=== PATIENT | female | born 1945 | race Caucasian/White ===

== ENCOUNTER → 2016-06-07 | Outpatient (CLI) | payer MEDICARE, OTHER ==
[~2016-06-07] MED LIST: CETI10 PO; CITA20TA4 PO; LIPI40TA PO; VENTAER INH; ZITH250T PO; [UNRECOGNIZED DRUG - OTHER] INH
[2016-06-07 13:00] LABS: HEMATOCRIT 40.8 % (35.0-46.0); MEAN CELL VOLUME 95.7 FL (80.0-100.0); MEAN CORPUSCULAR HEMOGLOBIN 31.7 PG (27.0-34.0); MEAN CORPUSCULAR HGB CONC 33.1 % (32.0-36.0); PLATELET COUNT 226 TH/MM3 (150-450); RED BLOOD COUNT 4.27 MIL/MM3 (4.00-5.30); RED CELL DISTRIBUTION WIDTH 14.5 % (11.6-17.2); REVIEW FLAG FINAL; WHITE BLOOD COUNT 6.3 TH/MM3 (4.0-11.0)
[2016-06-07 13:23] LABS: MICRO ALBUMIN RANDOM URINE RAW 13.5 MG/L (0.0-30.0)
[2016-06-07 13:35] LABS: ALKALINE PHOSPHATASE 74 U/L (45-117); ALT (GPT) 27 U/L (10-53); ANION GAP 7 MEQ/L (5-15); AST (GOT) 17 U/L (15-37); BICARBONATE 29.3 MEQ/L (21.0-32.0); BLOOD UREA NITROGEN 10 MG/DL (7-18); CHLORIDE 109 MEQ/L (98-107); GLOMERULAR FILTRATION RATE 59 ML/MIN (>89); GLUCOSE,FASTING 103 MG/DL (74-99); HDL CHOLESTEROL 54.7 MG/DL (40.0-60.0); LDL CHOLESTEROL 145 MG/DL (0-99); POTASSIUM 4.8 MEQ/L (3.5-5.1); SODIUM (NA) 145 MEQ/L (136-145); THYROXINE (T4) 8.4 MCG/DL (4.8-13.9); TOTAL BILIRUBIN ADULT 1.4 MG/DL (0.2-1.0)
== END ==
LOC: PLAB 11:13
PROVIDERS: ATTEND Internal Medicine
DX: E78.5 Hyperlipidemia, unspecified (principal); E11.65 Type 2 diabetes mellitus with hyperglycemia; I10 Essential (primary) hypertension
CPT/HCPCS: 36415; 80053; 80061; 82043; 84436; 84443; 85027

== ENCOUNTER 2017-04-23 08:10 | Observation (INO) | payer MEDICARE, OTHER ==
[~2017-04-23] VITALS: Ht 157.5 cm; Wt 69.8 kg
[~2017-04-23 08:10] MED LIST changes: +ACLI1AER2 INH; +BUPR150T3 PO; +CETI-1 PO; -CETI10 PO; +IPRA0.06 EACH NARE; +LIDOCAINE 1%/EPINEPHrine 1:100,000 SOLN 30 ML VIAL ONE; +OXYMETAZOLINE HCL 0.05% 15 ML NASAL SPRAY ONE; -[UNRECOGNIZED DRUG - OTHER] INH
[2017-04-23] MEDS ORDERED: AMPICILLIN/SULBAC 3 GM/NS 100 ML IV PRN ×2 (08:30)
[2017-04-23] MEDS ORDERED: PANT20 PO (09:46)
[2017-04-23] MEDS ORDERED: HUMIBIDDM PO (09:46)
[2017-04-23] MEDS ORDERED: RESP: ALBUTEROL CONC 2.5 MG/0.5 ML NEB ONE (10:22)
[2017-04-23] MEDS ORDERED: LACTATED RINGER'S 1000 ML INJ 1,000 ML ONE (10:22)
[2017-04-23] MEDS ORDERED: FAMOTIDINE 20 MG/2 ML VIAL ONE (10:22)
[2017-04-23] MEDS ORDERED: MIDAZOLAM HCL 2 MG/2 ML VIAL ONE (10:22)
[2017-04-23] MEDS ORDERED: SODIUM CHLORID 0.9% 500 ML IV PRN (11:00)
[2017-04-23] MEDS ORDERED: POVIDONE IODINE 5% (ANTISEPSIS KIT) 4 APPLICATIONS EACH NARE PRN (11:00)
[2017-04-23] MEDS ORDERED: CHLORHEXIDINE GLUCONATE 2 % 1 PACK (2 CLOTHS) TOPICAL PRN (11:00)
[2017-04-23] MEDS ORDERED: LACTATED RINGER'S 1000 ML IV PRN (11:00)
[2017-04-23] MEDS ORDERED: METOPROLOL TARTRATE 25 MG TAB PO PRN (11:00)
[2017-04-23] MEDS ORDERED: MUPIROCIN 2% OINT 22 GM TUBE ONE (13:39)
[2017-04-23] MEDS ORDERED: LABETALOL HCL 100 MG/20 ML VIAL ONE (14:11)
[2017-04-23] MEDS ORDERED: MORPHINE SULFATE 4 MG/ML INJ ONE (14:24)
[2017-04-23] MEDS ORDERED: ONDANSETRON HCL 4 MG/2 ML VIAL IV PRN (14:45)
[2017-04-23] MEDS: LACTATED RINGER'S 1000 ML INJ 1,000 ML IV SCH (14:45)
[2017-04-23] MEDS ORDERED: ACETAMINOPHEN/HYDROcodone 325 MG/5 MG TAB PO PRN (14:45)
[2017-04-23] MEDS ORDERED: DO NOT ADM ANY ANTICOAGULANT DRUGS PRN (14:45)
[2017-04-23] MEDS ORDERED: HYDROmorphone HCL PF 1 MG/ML VIAL ONE ×2 (14:54→15:20)
[2017-04-23] MEDS ORDERED: ALBUTEROL SULFATE 90 MCG/ACT HFA 8 GM INHALER INH PRN (16:00)
--- NOTE | 2017-04-23 16:02 | EKG ---
Date Performed: 04/23/2017 Time Performed: 10:00:53 PTAGE: 71 years EKG: Sinus rhythm LOW QRS VOLTAGE IN PRECORDIAL LEADS PATTERN CONSISTENT WITH PULMONARY DISEASE LEFT ANTERIOR FASCICUL AR BLOCK Since previous tracing, no significant change noted ABNORMAL ECG PREVIOUS TRACING : 10/25/2013 23.53 DOCTOR: Tanesha Pak Interpretating Date/Time 04/23/2017 16:01:22
[2017-04-23 16:13] VITALS: BP 135/65; PULSE 76; RESP 18; TEMP 97.1; O2SAT 95
[2017-04-23 16:23] VITALS: O2SAT 95
[2017-04-23] MEDS: AMPICILLIN/SULBAC 3 GM/NS 100 ML IV SCH ×2 (19:57)
[2017-04-23 20:00] VITALS: BP 186/93; PULSE 83; RESP 16; TEMP 98.2; O2SAT 98
[2017-04-23] MEDS ORDERED: ACLIDINIUM INH SCH (21:00)
[2017-04-23 21:35] VITALS: O2SAT 95
[2017-04-24] VITALS: BP 157/76; PULSE 87; RESP 16; TEMP 96.9; O2SAT 99
[2017-04-24] MEDS: LACTATED RINGER'S 1000 ML INJ 1,000 ML IV SCH (03:15)
[2017-04-24] MEDS: AMPICILLIN/SULBAC 3 GM/NS 100 ML IV SCH ×2 (04:35)
[2017-04-24 08:00] VITALS: BP 157/80; PULSE 89; RESP 18; TEMP 97.9; O2SAT 100
[2017-04-24] MEDS ORDERED: buPROPion HCL 150 MG SUSTAINED RELEASE TAB PO SCH (09:00)
[2017-04-24] MEDS ORDERED: PANTOPRAZOLE SOD 20 MG DELAYED RELEASE TAB PO SCH (09:00)
[2017-04-24] MEDS ORDERED: ATORVASTATIN 40 MG TAB PO SCH (09:00)
[2017-04-24] MEDS ORDERED: LIDOCAINE HCL 1% PF 5 ML AMPULE OTHER ONE (12:00)
[2017-04-24] MEDS ORDERED: PHENYLEPH/NS 1000 MCG/10 ML SYR IV ONE (12:00)
[2017-04-24] MEDS ORDERED: DEXAMETHASONE SOD PHOS 4 MG/ML VIAL IV ONE (12:00)
[2017-04-24] MEDS ORDERED: PROPOFOL 200 MG/20 ML AMP IV ONE (12:00)
[2017-04-24] MEDS ORDERED: SUCCINYLCHOLINE CHLORIDE 100 MG/5 ML SYRINGE IV PUSH ONE (12:00)
[2017-04-24] MEDS ORDERED: ONDANSETRON HCL 4 MG/2 ML VIAL IV PUSH ONE (12:00)
--- NOTE | 2017-05-12 12:19 | MP ---
cc: MACIEL ALLEN M.D. DATE OF SURGERY: April 23, [address] Maciel Allen PREOPERATIVE DIAGNOSIS 1. Nasal airway obstruction. 2. Nasal septal deviation. 3. Hypertrophy of inferior turbinates. 4. Bilateral anterior nasal stenosis. POSTOPERATIVE DIAGNOSIS: 1. Nasal airway obstruction. 2. Nasal septal deviation. 3. Hypertrophy of inferior turbinates. 4. Bilateral anterior nasal stenosis. OPERATION PERFORMED 1. Bilateral repair anterior nasal stenosis. 2. Open repair, nasal septal fracture. 3. Bilateral submucosal resection of inferior turbinates. INDICATIONS: Documented in the history and physical. DESCRIPTION OF OPERATION The patient was taken to OR #2 and placed in the supine position. Following induction of general anesthesia and intubation, the nose was packed bilaterally with cotton pledgets saturated in 0.05% Oxymetazoline and was injected into the columella of the bilateral anterior nasal vestibule, the septal mucosa and inferior turbinates with a total of 12 mL of 1% Xylocaine with epinephrine 1:100,000. She was then prepped and draped for surgery. The packing was removed and a W-plasty incision was made on the inferior surface of the columella. This was carried down sharply to the inferior surfaces of the medial crura of lower lateral cartilages. Sharp dissection then continued anteriorly and superiorly extending the incision within the nasal vestibule and elevating the skin from the underlying lower lateral cartilages. Sharp dissection then continued superiorly and laterally until the skin was elevated from the upper lateral cartilages as far as the junction of the bony and cartilaginous septum. Sharp dissection then continued between the medial crura of lower lateral cartilages until the anterior end of the quadrangular cartilage was encountered. This was displaced into the left nasal vestibule along the line of fracture which was displaced into the right nasal vestibule. The line of fracture was approximately 1 cm posterior to the anterior nasal spine. The vestibular skin and septal mucosa were then elevated from the quadrangular cartilage using sharp dissection and a Rodrick elevator. This continued posteriorly as far as the junction of the bony and cartilaginous septum. Following this a cumulative area of 2 x 2.5 cm of the quadrangular cartilage was removed preserving 1.5 cm dorsal and caudal cartilaginous struts. The caudal cartilaginous strut was fully mobilized from the surrounding soft tissue and was then returned to the midline and sewn in place to the anterior nasal spine using a single suture of 5-0 clear nylon. When this was done the mucosa was elevated from the bony septum and the bony septum was removed with Mireles Dotson forceps and Grant septal forceps. The maxillary crest was removed using a 6-mm Lucy chisel and preserving the anterior nasal spine. When this was completed the inferior turbinates were addressed. There were fractured out medially and stab incisions made along their inferior surfaces. Through these incisions the submucosal soft tissue was reduced using a curette and preserving the conchal bone. The incision was then cauterized using a suction Bovie at 45 neal. The remnants of the inferior turbinates were then relateralized to the lateral nasal wall. Reconstruction of the columella was begun incorporating a 2 x 12 millimeter segment of the quadrangular cartilage. This was placed between the medial crura and held in place using interrupted sutures of the 5-0 clear nylon. Additional sutures of the nylon were placed into the domes of the lower lateral cartilages and a horizontal mattress suture was placed between the lateral crura of lower lateral cartilages to elevate and further define the nasal tip. The skin was then redraped over the nasal tip and the incisions were closed with interrupted sutures of 5-0 fast-absorbing plain gut. The nose was then packed bilaterally with 5.5 cm rapid rhino inflatable packs, each inflated with 5 mL of air and the procedure was terminated. The patient was reversed from anesthesia and taken to recovery in good condition. There were no complications. Blood loss was 80 mL. MD CONNOR Brenner/ESME /11:11 AM /11:49 AM
== END 2017-04-24 09:39 | disposition home or self-care (01) ==
LOC: PHSDC 08:10 → PH3A 15:59
PROVIDERS: ADMIT Otolaryngology; ATTEND Otolaryngology
DX: J34.2 Deviated nasal septum (principal); J34.3 Hypertrophy of nasal turbinates; J34.89 Other specified disorders of nose and nasal sinuses; J32.8 Other chronic sinusitis; J33.0 Polyp of nasal cavity; G47.33 Obstructive sleep apnea (adult) (pediatric); J44.9 Chronic obstructive pulmonary disease, unspecified; E78.00 Pure hypercholesterolemia, unspecified; R94.31 Abnormal electrocardiogram [ECG] [EKG]; Z87.891 Personal history of nicotine dependence
CPT/HCPCS: 00160; 21336; 30140; 30465; 88304; 93005; 94664; 94762; 96365; G0378; J0295; J0330; J1100; J1170; J2250; J2270; J2370; J2405; J3010; J7120; J7611; 88305

== ENCOUNTER 2017-05-05 23:44 | Inpatient (IN) | payer MEDICARE, OTHER ==
[~2017-05-05] VITALS: Ht 157.5 cm; Wt 78.5 kg
[~2017-05-05 23:44] MED LIST changes: -CITA20TA4 PO; +HUMIBIDDM PO; -IPRA0.06 EACH NARE; -LIDOCAINE 1%/EPINEPHrine 1:100,000 SOLN 30 ML VIAL ONE; -OXYMETAZOLINE HCL 0.05% 15 ML NASAL SPRAY ONE; +PANT20 PO; -ZITH250T PO
[2017-05-05 23:46] VITALS: BP 156/67; PULSE 90; RESP 16; O2SAT 94
[2017-05-06] VITALS (9 sets, daily range): BP systolic 102–173; BP diastolic 48–72; PULSE 82–92; RESP 17–19; TEMP 96.1–97.7; O2SAT 94–98
[2017-05-06 00:24] LABS: AUTOMATED NEUTROPHIL # 8.8 TH/MM3 (1.8-7.7); BASOPHIL # 0.1 TH/MM3 (0-0.2); BASOPHIL % 0.6 % (0.0-2.0); EOSINOPHIL # 0.2 TH/MM3 (0-0.4); EOSINOPHIL % 1.4 % (0.0-4.0); HEMATOCRIT 34.4 % (35.0-46.0); HEMOGLOBIN 11.7 GM/DL (11.6-15.3); LYMPH % 16.6 % (9.0-44.0); LYMPHOCYTE # 1.9 TH/MM3 (1.0-4.8); MEAN CELL VOLUME 95.8 FL (80.0-100.0); MEAN CORPUSCULAR HEMOGLOBIN 32.5 PG (27.0-34.0); MEAN CORPUSCULAR HGB CONC 33.9 % (32.0-36.0); MEAN PLATELET VOLUME 7.4 FL (7.0-11.0); MONO % 5.7 % (0.0-8.0); MONOCYTE # 0.7 TH/MM3 (0-0.9); NEUT % 75.7 % (16.0-70.0); PLATELET COUNT 271 TH/MM3 (150-450); RED BLOOD COUNT 3.59 MIL/MM3 (4.00-5.30); RED CELL DISTRIBUTION WIDTH 14.6 % (11.6-17.2); WHITE BLOOD COUNT 11.7 TH/MM3 (4.0-11.0)
[2017-05-06 00:30] LABS: PROTHROMBIN TIME - PATIENT 9.8 SEC (9.8-11.6)
--- NOTE | 2017-05-06 00:31 | PD ---
HPI Chief Complaint: Fall Time Seen by Provider: 23:52 Travel History International Travel<30 days: No Contact w/Intl Traveler<30days: No Traveled to known affect area: No History of Present Illness HPI The patient is a 71 year old female who presents to the [facility] emergency department with a history of tripping when going over a baby gate prior to arrival. The patient reports that she heard a snap and felt severe pain in the right leg below her knee. The patient was noted to have deformity in the right tib-fib area without any evidence of open wound. The patient was placed in a box splint by ambulance services prior to arrival. The patient denies hitting her head or losing consciousness. She denies having any neck pain, paresthesias, or weakness of her extremities. She denies being on any blood thinners. She denies having any chest pain or pressure. She does report having some shortness of breath occasionally, however she attributes this to her COPD. She reports that she quit smoking 4 years ago. Otherwise on review of systems, the patient denies having any recent fevers, worsening cough or congestion, neck pain, abdominal pain, vomiting, diarrhea, urinary symptoms, or other neurologic symptoms. [facility] Past Medical History Narrative Medical The patient's past medical history is significant for COPD, hyperlipidemia, depression, gastroesophageal reflux disease. Arthritis: Yes Blood Disorders: No Depression: Yes Cancer: Yes (BCC REMOVED FROM NOSE) Cardiovascular Problems: Yes (ELEVATED BLOOD CHOLESTEROL) High Cholesterol: Yes COPD: Yes Diminished Hearing: No Endocrine: No Gastrointestinal Disorders: Yes (GERD , INFLAMMATION OF STOMACH PER COLONOSCOPY IN AUGUST 2008) GERD: Yes Glaucoma: No Genitourinary: No Hepatitis: No Immune Disorder: No Implanted Vascular Access Dvce: Yes Musculoskeletal: Yes (RIGHT SHOULDER PAIN RELATED TO FALL) Neurologic: Yes (HERNIATED DISCS) Psychiatric: Yes Reproductive: No Respiratory: Yes (SLEEP APNEA (USES C-PAP), COPD) Sleep Apnea: Yes Influenza Vaccination: Yes Dilation and Curettage (D&C): Yes (THREE TIMES) Past Surgical History Narrative Surgical The patient's past surgical history is significant for bilateral hip replacement , right wrist ORIF, on April 23 of this year she had nasal surgery, history of bilateral cataract surgery, D&C, bilateral tubal ligation. Abdominal Surgery: No AICD: No Body Medical Devices: WIRE RIGHT WRIST Cardiac Surgery: No Section: Yes Ear Surgery: No Endocrine Surgery: No Eye Surgery: Yes (bilateral cataract surgeries) Genitourinary Surgery: No Gynecologic Surgery: Yes (84' ; D&C X 3; TUBAL LIGATION) Joint Replacement: Yes (BILAT HIPS) Oral Surgery: No Pacemaker: No Thoracic Surgery: No Other Surgery: Yes Social History Alcohol Use: Yes ("OCCASIONALLY") Tobacco Use: No (QUIT 05/21) Substance Use: No Allergies-Medications (Allergen,Severity, Reaction): Coded Allergies: Tetracyclines (Verified Allergy, Severe, UNKNOWN - CHILD, 04/23/17) Reported Meds & Prescriptions Reported Meds & Active Scripts Active Reported Protonix (Pantoprazole Sodium) 20 Mg Tab 20 Mg PO DAILY Tudorza Pressair Inh (Aclidinium [place] Inh) 400 Mcg/Act Aerp 1 Puff INH BID Bupropion HCl ER 24 HR (Bupropion HCl) 150 Mg Tab 150 Mg PO DAILY Zyrtec (Cetirizine HCl) 10 Mg Tablet PO DAILY Lipitor (Atorvastatin Calcium) 40 Mg Tab 40 Mg PO DAILY Ventolin Hfa 18 GM Inh (Albuterol Sulfate) 90 Mcg/Act Aer 2 Puff INH Q6H PRN Review of Systems Except as stated in HPI: all other systems reviewed are Neg General / Constitutional: No: Fever Eyes: No: Visual changes HENT: No: Headaches Cardiovascular: No: Chest Pain or Discomfort Respiratory: No: Shortness of Breath Gastrointestinal: No: Abdominal Pain Genitourinary: No: Dysuria Musculoskeletal: Positive: Myalgias, Arthralgias, Limited ROM, Edema, Pain Skin: No Rash Neurologic: No: Weakness Psychiatric: No: Depression Endocrine: No: Polydipsia Hematologic/Lymphatic: No: Easy Bruising Physical Exam Narrative General: The patient is a well-developed well-nourished female in no acute distress. Head and Neck exam: Head is normocephalic atraumatic. Eyes: EOMI, pupils are equal round and reactive to light. Nose: Midline septum with pink mucous membranes Mouth: Dentition unremarkable. Moist mucus membranes. Posterior oropharynx is not erythematous. No tonsillar hypertrophy. Uvula midline. Airway patent. Neck: No palpable lymphadenopathy. No nuchal rigidity. No thyromegaly. No spinous process tenderness to palpation. No step-off or crepitus. No erythema or ecchymosis Cardiovascular: Regular rate and rhythm without murmurs, gallops, or rubs. Lungs: Clear to auscultation bilaterally. No wheezes, rhonchi, or rales. Abdomen: Soft, without tenderness to palpation in all 4 quadrants of the abdomen. No guarding, rebound, or rigidity. Negative Clarendon sign. Extremities: No clubbing or cyanosis. The patient has edema noted to the mid shaft of the tibia. The patient has ecchymosis developing just distal to the knee. The patient has no knee tenderness on palpation. No knee effusion noted. No ballotable patella. The patient has tenderness on palpation overlying the tibia and fibula. There is no crepitus palpated. The patient has less than 3 second capillary refill of her digits. 2+ pulses in all 4 extremities. The patient has intact sensation of her digits. Back: No spinous process tenderness to palpation. No costovertebral angle tenderness to palpation. Neurologic Exam: Grossly nonfocal. Skin Exam: The patient has an abrasion noted to the right lateral forearm. Intact skin that is warm and dry. Data Data Last Documented VS Vital Signs Date Time Temp Pulse Resp B/P (MAP) Pulse Ox O2 Delivery O2 Flow Rate FiO2 05/06/17 01:28 82 18 135/61 (85) 97 Nasal Cannula 2.00 Orders Orders Electrocardiogram (05/06/17 00:03) Complete Blood Count With Diff (05/06/17 00:03) Comprehensive Metabolic Panel (05/06/17 00:03) Creatine Kinase (Cpk) (05/06/17 00:03) Ckmb (Isoenzyme) Profile (05/06/17:03) Troponin I (05/06/17:03) Prothrombin Time / Inr (Pt) (05/06/17 00:03) Act Partial Throm Time (Ptt) (05/06/17 00:03) Potassium, Serum (K) (05/06/17 00:03) Chest, Single Ap (05/06/17 00:03) Pelvis, Ap Only (Routine) (05/06/17 00:03) Iv Access Insert/Monitor (05/06/17 00:03) Ecg Monitoring (05/06/17 00:03) Oximetry (05/06/17 00:03) Knee, Complete (4vws) (05/06/17 00:03) Tibia/Fibula (Ap/Lat) (05/06/17 00:03) CKMB (05/05/17 23:50) CKMB% (05/05/17 23:50) Splint Or Brace Apply/Monitor (05/06/17 02:16) Admit Order (Ed Use Only) (05/06/17 02:21) Consult Orthopedic (05/06/17 ) Labs Laboratory Tests Test 05/05/17 23:50 White Blood Count 11.7 TH/MM3 Red Blood Count 3.59 MIL/MM3 Hemoglobin 11.7 GM/DL Hematocrit 34.4 % Mean Corpuscular Volume 95.8 FL Mean Corpuscular Hemoglobin 32.5 PG Mean Corpuscular Hemoglobin Concent 33.9 % Red Cell Distribution Width 14.6 % Platelet Count 271 TH/MM3 Mean Platelet Volume 7.4 FL Neutrophils (%) (Auto) 75.7 % Lymphocytes (%) (Auto) 16.6 % Monocytes (%) (Auto) 5.7 % Eosinophils (%) (Auto) 1.4 % Basophils (%) (Auto) 0.6 % Neutrophils # (Auto) 8.8 TH/MM3 Lymphocytes # (Auto) 1.9 TH/MM3 Monocytes # (Auto) 0.7 TH/MM3 Eosinophils # (Auto) 0.2 TH/MM3 Basophils # (Auto) 0.1 TH/MM3 CBC Comment DIFF FINAL Differential Comment Prothrombin Time 9.8 SEC Prothromb Time International Ratio 1.0 RATIO Activated Partial Thromboplast Time 22.0 SEC Blood Urea Nitrogen 16 MG/DL Creatinine 0.83 MG/DL Random Glucose 117 MG/DL Total Protein 7.2 GM/DL Albumin 3.7 GM/DL Calcium Level 8.2 MG/DL Alkaline Phosphatase 73 U/L Aspartate Amino Transf (AST/SGOT) 19 U/L Alanine Aminotransferase (ALT/SGPT) 19 U/L Total Bilirubin 0.6 MG/DL Sodium Level 145 MEQ/L Potassium Level 3.8 MEQ/L Chloride Level 111 MEQ/L Carbon Dioxide Level 27.7 MEQ/L Anion Gap 6 MEQ/L Estimat Glomerular Filtration Rate 68 ML/MIN Total Creatine Kinase 111 U/L Creatine Kinase MB 1.1 NG/ML Troponin I LESS THAN 0.02 NG/ML MDM Medical Decision Making Medical Screen Exam Complete: Yes Emergency Medical Condition: Yes Medical Record Reviewed: Yes Interpretation(s) Last Impressions Tibia/Fibula X-Ray 05/06/172 Signed Impressions: Service Date/Time: Saturday, May 06, 2017 00:29 - CONCLUSION: 1. Minimally displaced spiral fracture lateral malleolus. Lyndon Aparicio MD Pelvis X-Ray 05/06/172 Signed Impressions: Service Date/Time: Saturday, May 06, 2017 00:25 - CONCLUSION: 1. No acute findings. Previous bilateral hip replacement. Lyndon Aparicio MD Knee X-Ray 05/06/172 Signed Impressions: Service Date/Time: Saturday, May 06, 2017 00:28 - CONCLUSION: 1. Comminuted fractures of the proximal tibia and fibula with mild displacement and positive hemarthrosis. Lyndon Aparicio MD Chest X-Ray 05/06/172 Signed Impressions: Service Date/Time: Saturday, May 06, 2017 00:27 - CONCLUSION: 1. No active disease. Remote right proximal humeral fracture. Lyndon Aparicio MD Knee X-Ray 05/06/17 Signed Impressions: Service Date/Time: Saturday, May 06, 2017 08:45 - CONCLUSION: Fluoroscopic images during placement of plate and screws along the proximal tibia fixing fracture. Fibular fracture also seen. Negro Oliveira MD Ankle X-Ray 05/06/17 Signed Impressions: Service Date/Time: Saturday, May 06, 2017 08:45 - CONCLUSION: Fluoroscopic image of the ankle demonstrates ankle mortise intact. Distal fibular fracture noted. Negro Oliveira MD Differential Diagnosis Levine contusion, versus tib-fib fracture, versus dislocation Narrative Course During the course of the patients emergency department visit, the patients history, examination, and differential diagnosis were reviewed with the patient. The patient was placed on a regional otr company driver with oximetry and frequent blood pressure monitoring. The patient had IV access obtained and blood work sent for analysis. An EKG was done on arrival. The patient's EKG reveals a sinus rhythm, marked left axis deviation, QRS duration 92 ms, QTC [address] segment elevation. T waves are inverted in V1 The patient was initially provided an ice pack for pain. The patient had been given a total morphine 10 mg IV, prior to arrival by ambulance services. The patient was given normal saline at 100 mL per hour. The patients laboratory studies were reviewed and remarkable for a white count of 11.7, hemoglobin 11.7, platelets 271 with a neutrophil of 75.7. CMP is remarkable for chloride of 111, glucose 117, cardiac enzymes within normal limits, PT 9.8, PTT 22 Radiology studies were reviewed and remarkable for a tib-fib x-ray that reveals a minimally displaced spiral fracture of the lateral malleolus, pelvis x-ray reveals bilateral hip replacements, no other acute abnormality. Knee x-ray reveals a comminuted fracture of the proximal tibia and fibula with mild displacement and positive hemarthrosis. Chest x-ray shows no active disease, remote right proximal humeral fracture. The patient had an ice cuff applied to the right leg. The patient was placed in a long posterior splint. The patients results were discussed with the patient, including the plan of care. I explained that further testing and/ or monitoring is indicated based on the patients history, examination, and/ or laboratory findings. Therefore, I recommended admission for additional evaluation. The patient expressed understanding and was agreeable with this plan. The patient was admitted to the hospital in stable condition and sent to a bed under the care of the [facility]. Physician Communication Physician Communication The patient's case including history, pertinent physical examination findings, and laboratory studies were discussed with Dr. Zamora. It was agreed that the patient would be admitted to the [facility] service. Diagnosis Primary Impression: Fracture of right tibia and fibula Qualified Codes: S82.201A - Unspecified fracture of shaft of right tibia, initial encounter for closed fracture; S82.401A - Unspecified fracture of shaft of right fibula, initial encounter for closed fracture Additional Impression: Fracture of right ankle, lateral malleolus Qualified Codes: S82.61XA - Displaced fracture of lateral malleolus of right fibula, initial encounter for closed fracture Admitting Information Admitting Physician Requests: Admit Scripts Calcium Carbonate-Vitamin D (Calcium 600+D 200) 600-200 Mg-Unit Tab 1 TAB PO BID for Nutritional Supplement, #90 TAB 0 Refills Prov: Ezequiel Oden Jr. 05/07/17 Ergocalciferol (Ergocalciferol) 50,000 Unit Cap 08144 UNITS PO Q7D for Nutritional Supplement, #8 CAP Prov: Ezequiel Oden Jr. 05/07/17 Rivaroxaban (Xarelto) 10 Mg Tab 10 MG PO DAILY for Blood Clot Prevention, #14 TAB 0 Refills Prov: Ezequiel Oden Jr. 05/07/17 Hydrocodone-Acetaminophen (Hydrocodone-Acetaminophen) 7.5 Mg-325 Mg Tab 1 TAB PO Q4H Y for PAIN, #40 TAB 0 Refills Prov: Ezequiel Oden Jr. 05/07/17 Paige Hayes MD May 06, 2017 00:31
[2017-05-06 00:47] LABS: ALKALINE PHOSPHATASE 73 U/L (45-117); TOTAL BILIRUBIN ADULT 0.6 MG/DL (0.2-1.0); TOTAL PROTEIN 7.2 GM/DL (6.4-8.2); TROPONIN I LESS THAN 0.02 NG/ML (0.02-0.05)
[2017-05-06 00:48] LABS: ALBUMIN 3.7 GM/DL (3.4-5.0); ALT (GPT) 19 U/L (10-53); AST (GOT) 19 U/L (15-37); BICARBONATE 27.7 MEQ/L (21.0-32.0); BLOOD UREA NITROGEN 16 MG/DL (7-18); CALCIUM 8.2 MG/DL (8.5-10.1); CHLORIDE 111 MEQ/L (98-107); CREATININE 0.83 MG/DL (0.50-1.00); GLOMERULAR FILTRATION RATE 68 ML/MIN (>89); GLUCOSE,RANDOM 117 MG/DL (74-106); SODIUM (NA) 145 MEQ/L (136-145)
--- NOTE | 2017-05-06 01:05 | RADRPT ---
EXAM DATE/TIME: 05/06/2017 00:27 [facility] COMPARISON: No previous studies available for comparison. INDICATIONS : Right leg pain post fall onto right leg tonight. MEDICAL HISTORY : Hypercholesterolemia. Chronic obstructive pulmonary disease. Gastroesophageal reflux disease. SURGICAL HISTORY : Tubal ligation. section. Right Wrist, Bilateral Hip Replacement ENCOUNTER: Initial ACUITY: 1 day PAIN SCORE: 8/10 LOCATION: Bilateral chest FINDINGS: A single view of the chest demonstrates the lungs to be symmetrically aerated without evidence of mas s, infiltrate or effusion. The cardiomediastinal contours are unremarkable. Osseous structures are intact. CONCLUSION: 1. No active disease. Remote right proximal humeral fracture. Lyndon Aparicio MD on May 06, 2017 at 1:01 Board Certified Radiologist. This report was verified electronically.
--- NOTE | 2017-05-06 01:06 | RADRPT ---
EXAM DATE/TIME: 05/06/2017 00:25 [facility] COMPARISON: No previous studies available for comparison. INDICATIONS : Right leg pain post fall onto right leg tonight. MEDICAL HISTORY : Hypercholesterolemia. COPD, GERD SURGICAL HISTORY : Tubal ligation. section. Bilateral Hip Replacement ENCOUNTER: Initial ACUITY: 1 day PAIN SCORE: 8/10 LOCATION: Bilateral pelvis FINDINGS: A single frontal view of the pelvis demonstrates bilateral total hip replacement. Rectal constipation . No acute fracture or dislocation. CONCLUSION: 1. No acute findings. Previous bilateral hip replacement. Lyndon Aparicio MD on May 06, 2017 at 1:03 Board Certified Radiologist. This report was verified electronically.
--- NOTE | 2017-05-06 01:08 | RADRPT ---
EXAM DATE/TIME: 05/06/2017 00:28 [facility] COMPARISON: No previous studies available for comparison. INDICATIONS : Right leg pain post fall onto right leg tonight. MEDICAL HISTORY : Hypercholesterolemia. COPD, GERD SURGICAL HISTORY : Tubal ligation. section. Right wrist, Bilateral Hip Replacement ENCOUNTER: Initial ACUITY: 1 day PAIN SCORE: 8/10 LOCATION: Right Knee FINDINGS: There is a slightly comminuted fracture of the proximal tibia with extension into the tibial plateau especially laterally and mild depression. Also a mildly comminuted fracture proximal fibula. Bones os teopenic. Hemarthrosis right knee joint. Distal femur are intact. Patella intact. CONCLUSION: 1. Comminuted fractures of the proximal tibia and fibula with mild displacement and positive hemarthr osis. Lyndon Aparicio MD on May 06, 2017 at 1:04 Board Certified Radiologist. This report was verified electronically.
--- NOTE | 2017-05-06 01:09 | RADRPT ---
EXAM DATE/TIME: 05/06/2017 00:29 [facility] COMPARISON: No previous studies available for comparison. INDICATIONS : Right leg pain post fall onto right leg tonight. MEDICAL HISTORY : Hypercholesterolemia. COPD, GERD SURGICAL HISTORY : Tubal ligation. section. Right Wrist, Bilateral Hip Replacement ENCOUNTER: Initial ACUITY: 1 day PAIN SCORE: 8/10 LOCATION: Right Tib-Fib FINDINGS: There is a minimally displaced spiral fracture of the lateral malleolus. Mild overlying soft tissue s welling. Distal tibia intact. Ankle mortise appears intact. CONCLUSION: 1. Minimally displaced spiral fracture lateral malleolus. Lyndon Aparicio MD on May 06, 2017 at 1:06 Board Certified Radiologist. This report was verified electronically.
[2017-05-06] MEDS ORDERED: LACTULOSE SYRUP 20 GM/30 ML CUP PO PRN (02:30)
[2017-05-06] MEDS ORDERED: ONDANSETRON HCL 4 MG/2 ML VIAL IVP PRN (02:30)
[2017-05-06] MEDS ORDERED: ALBUTEROL SULFATE 90 MCG/ACT HFA 8 GM INHALER INH PRN (02:30)
[2017-05-06] MEDS ORDERED: ACETAMINOPHEN/HYDROcodone 325 MG/5 MG TAB PO PRN (02:30)
[2017-05-06] MEDS ORDERED: BISACODYL 10 MG SUPP RECTAL PRN (02:30)
[2017-05-06] MEDS ORDERED: SENNOSIDES 8.6 MG TAB PO PRN (02:30)
[2017-05-06] MEDS ORDERED: SODIUM CHLORIDE 0.9% FLUSH 10 ML FLUSH IV FLUSH PRN (02:30)
[2017-05-06] MEDS ORDERED: MAGNESIUM HYDROXIDE SUSP 30 ML CUP PO PRN (02:30)
[2017-05-06] MEDS ORDERED: ACETAMINOPHEN 325 MG TAB PO PRN (02:30)
[2017-05-06] MEDS: MORPHINE SULFATE 2 MG/ML INJ IV PUSH PRN ×2 (02:46→05:55)
[2017-05-06] MEDS: SODIUM CHLOR 0.9% 1000 ML INJ 1,000 ML IV SCH ×3 (02:54→23:23)
[2017-05-06] MEDS ORDERED: POVIDONE IODINE 5% (ANTISEPSIS KIT) 4 APPLICATIONS EACH NARE PRN (04:00)
[2017-05-06] MEDS ORDERED: LACTATED RINGER'S 1000 ML IV PRN (04:00)
[2017-05-06] MEDS ORDERED: CHLORHEXIDINE GLUCONATE 2 % 1 PACK (2 CLOTHS) TOPICAL PRN (04:00)
--- NOTE | 2017-05-06 04:39 | HHI.HP ---
[facility] Yeimy Evans MD Admission Diagnosis Right Tib fib fx, right lateral malleolus fx sp fall Diagnoses: (1) Fall Diagnosis: Principal (2) Right tibial fracture Diagnosis: Principal (3) Right malleolar fracture Diagnosis: Principal (4) COPD (chronic obstructive pulmonary disease) Diagnosis: Principal Travel History International Travel<30 Days: No Contact w/Intl Traveler <30 Da: No Traveled to Known Affected Are: No History of Present Illness This is a 71-year-old female with a PMH of HTN, Depression, anemia, COPD and GERD brought to the ER by EMS after a fall with complaints of right leg pain. Per patient, she was stepping over a baby gate to separate her dog from her, when she tripped and fell onto her right leg. Immediate complaints of pain. Pain constant, sharp, severe, 10/10, non-radiating, worse w/ movement. No LOC or head trauma. On arrival, BP 156/67, HR 90, O2 sat 94% on RA Afebrile. WBC 11.7. Chemistry essentially unremarkable. INR 1.0. CXR with no acute findings , remote right proximal humerus fracture. Knee X-ray with comminuted fractures of proximal tibia and fibula, hemarthrosis. Pelvis X-ray negative. Tibia/ Fibula X-ray minimally displaced spiral fracture lateral malleolus. Review of Systems Except as stated in HPI: all other systems reviewed are Neg ROS: 14 point review of systems otherwise negative. Past Family Social History Past Medical History PMH: HTN, Depression, anemia, COPD and GERD Past Surgical History PAST SURGICAL HISTORY: Bilateral Hip Replacement, Bilateral Cataract Surgery, Right Wrist ORIF, Tubal Ligation, Allergies: Coded Allergies: Tetracyclines (Verified Allergy, Severe, UNKNOWN - CHILD, 04/23/17) Family History PAST FAMILY HISTORY: Reviewed. No h/o DM or CAD Social History PAST SOCIAL HISTORY: Occasional alcohol. Negative for tobacco or drugs. Physical Exam Vital Signs Vital Signs Date Time Temp Pulse Resp B/P (MAP) Pulse Ox O2 Delivery O2 Flow Rate FiO2 05/06/17 02:56 86 19 140/63 (88) 97 Nasal Cannula 2.00 05/06/17 01:28 82 18 135/61 (85) 97 Nasal Cannula 2.00 05/06/17 00:47 83 18 172/71 (104) 97 Nasal Cannula 2.00 05/06/17 00:18 97 Room Air 05/05/17 23:46 90 16 156/67 (96) 94 Physical Exam PE: GENERAL: Pleasant elderly female in no acute distress. HEENT: PERRLA, EOMI. No scleral icterus or conjunctival pallor. No lid lag or facial droop. CARDIOVASCULAR: Regular rate and rhythm. No obvious murmurs to auscultation. No chest tenderness to palpation. RESPIRATORY: No obvious rhonchi or wheezing. Clear to auscultation. Breath sounds equal bilaterally. GASTROINTESTINAL: Abdomen soft, non-tender, nondistended. BS normal. MUSCULOSKELETAL: Extremities without clubbing, cyanosis, or edema. No obvious deformities. Decreased ROM of RLE due to injury. Pulses intact. NEUROLOGICAL: Awake, alert and oriented x4. No focal neurologic deficits. Moving both upper and lower extremities spontaneously. Laboratory Laboratory Tests Test 05/05/17 23:50 White Blood Count 11.7 Red Blood Count 3.59 Hemoglobin 11.7 Hematocrit 34.4 Mean Corpuscular Volume 95.8 Mean Corpuscular Hemoglobin 32.5 Mean Corpuscular Hemoglobin Concent 33.9 Red Cell Distribution Width 14.6 Platelet Count 271 Mean Platelet Volume 7.4 Neutrophils (%) (Auto) 75.7 Lymphocytes (%) (Auto) 16.6 Monocytes (%) (Auto) 5.7 Eosinophils (%) (Auto) 1.4 Basophils (%) (Auto) 0.6 Neutrophils # (Auto) 8.8 Lymphocytes # (Auto) 1.9 Monocytes # (Auto) 0.7 Eosinophils # (Auto) 0.2 Basophils # (Auto) 0.1 CBC Comment DIFF FINAL Differential Comment Prothrombin Time 9.8 Prothromb Time International Ratio 1.0 Activated Partial Thromboplast Time 22.0 Blood Urea Nitrogen 16 Creatinine 0.83 Random Glucose 117 Total Protein 7.2 Albumin 3.7 Calcium Level 8.2 Alkaline Phosphatase 73 Aspartate Amino Transf (AST/SGOT) 19 Alanine Aminotransferase (ALT/SGPT) 19 Total Bilirubin 0.6 Sodium Level 145 Potassium Level 3.8 Chloride Level 111 Carbon Dioxide Level 27.7 Anion Gap 6 Estimat Glomerular Filtration Rate 68 Total Creatine Kinase 111 Creatine Kinase MB 1.1 Troponin I LESS THAN 0.02 Result Diagram: 05/05/17234905/05/172349 Krisrinyesenia VTE Risk Assessment Jessica VTE Risk Assessment: Mod/High Risk (score >= 2) Krisrini Risk Assessment Model Point Value = 1 Point Value = 2 Point Value = 3 Point Value = 5 Age 41-60 Minor surgery BMI > 25 kg/m2 Swollen legs Varicose veins or History of unexplained or recurrent spontaneous Oral contraceptives or hormone replacement Sepsis (< 1 month) Serious lung disease, including pneumonia (< 1 month) Abnormal pulmonary function Acute myocardial infarction Congestive heart failure (< 1 month) History of inflammatory bowel disease Medical patient at bed rest Age 61-74 Arthroscopic surgery Major open surgery (> 45 min) Laparoscopic surgery (> 45 min) Malignancy Confined to bed (> 72 hours) Immobilizing plaster cast Central venous access Age >= 75 History of VTE Family history of VTE Factor V Leiden Prothrombin [id number] Lupus anticoagulant Anticardiolipin antibodies Elevated serum homocysteine Heparin-induced thrombocytopenia Other congenital or acquired thrombophilia Stroke (< 1 month) Elective arthroplasty Hip, pelvis, or leg fracture Acute spinal cord injury (< 1 month) Prophylaxis Regimen Total Risk Factor Score Risk Level Prophylaxis Regimen 0-1 Low Early ambulation 2 Moderate Order ONE of the following: *Sequential Compression Device (SCD) *Heparin 5000 units SQ BID 3-4 Higher Order ONE of the following medications: *Heparin 5000 units SQ TID *Enoxaparin/Lovenox 40 mg SQ daily (WT < 150 kg, CrCl > 30 mL/min) *Enoxaparin/Lovenox 30 mg SQ daily (WT < 150 kg, CrCl > 10-29 mL/min) *Enoxaparin/Lovenox 30 mg SQ BID (WT < 150 kg, CrCl > 30 mL/min) AND/OR *Sequential Compression Device (SCD) 5 or more Highest Order ONE of the following medications: *Heparin 5000 units SQ TID (Preferred with Epidurals) *Enoxaparin/Lovenox 40 mg SQ daily (WT < 150 kg, CrCl > 30 mL/min) *Enoxaparin/Lovenox 30 mg SQ daily (WT < 150 kg, CrCl > 10-29 mL/min) *Enoxaparin/Lovenox 30 mg SQ BID (WT < 150 kg, CrCl > 30 mL/min) AND *Sequential Compression Device (SCD) Assessment and Plan Problem List: (1) Fall ICD Code: W19.XXXA - Unspecified fall, initial encounter (2) Right malleolar fracture ICD Code: S82.891A - Other fracture of right lower leg, initial encounter for closed fracture (3) Right tibial fracture ICD Code: S82.201A - Unspecified fracture of shaft of right tibia, initial encounter for closed fracture (4) COPD (chronic obstructive pulmonary disease) ICD Code: J44.9 - COPD (chronic obstructive pulmonary disease) Status: Chronic Assessment and Plan A/P: 1. Fall: s/p mechanical trip and fall at home, no LOC or head trauma reported. No other injuries noted. 2. Right Proximal Tib-Fib Fx/Right Malleolus Fx: Secondary to above. The X- ray with comminuted fractures of proximal tibia and fibula with hemarthrosis. Tibia/Fibula X-ray minimally displaced spiral fracture lateral malleolus, images reviewed by me. Ortho consulted, plan is for surgical intervention. NPO , IVF, analgesics/antiemetics. Pre-op labs reviewed by me, essentially unremarkable. 3. COPD: Chronic Respiratory Failure. Resume home MDI/Neb. CXR w/ no acute findings, images reviewed by me. 4. DVT Prophylaxis: Anticoagulations postop 5. Social work for DC planning as needed. 6. Case discussed at length with ER physician, lab/records/imaging reviewed by me. Physician Certification 2 Midnight Certification Type: Admission for Inpatient Services Order for Inpatient Services The services are ordered in accordance with Medicare regulations or non- Medicare payer requirements, as applicable. In the case of services not specified as inpatient-only, they are appropriately provided as inpatient services in accordance with the 2-midnight benchmark. Estimated LOS (days): 2 days is the estimated time the patient will need to remain in the hospital, assuming treatment plan goals are met and no additional complications. Post-Hospital Plan: Not yet determined Esther Zamora MD May 06, 2017 04:39
[2017-05-06] MEDS ORDERED: ACETAMINOPHEN 1000 MG/100 ML 100 ML IV ONE (06:19)
--- NOTE | 2017-05-06 06:34 | PD.ORT.PN ---
Subjective Subjective Remarks Patient with a history of COPD. She was stepping over a baby gate and caught her foot and fell over. X-rays show a right tibia plateau and minimally displaced distal fibula fracture. Objective Vitals Vital Signs Date Time Temp Pulse Resp B/P (MAP) Pulse Ox O2 Delivery O2 Flow Rate FiO2 05/06/17 03:15 97.7 86 18 165/70 (101) 98 05/06/17 02:56 86 19 140/63 (88) 97 Nasal Cannula 2.00 05/06/17 01:28 82 18 135/61 (85) 97 Nasal Cannula 2.00 05/06/17 00:47 83 18 172/71 (104) 97 Nasal Cannula 2.00 05/06/17 00:18 97 Room Air 05/05/17 23:46 90 16 156/67 (96) 94 I/O 05/05/17 05/05/17 05/05/17 05/06/17 05/06/17 05/06/17 07:00 15:00 23:00 07:00 15:00 23:00 Intake Total 0 ml Balance 0 ml Intake Oral 0 ml # Voids 0 # Bowel Movements 0 Result Diagram: 05/05/17 2350 05/05/17 2350 Other Results Laboratory Tests Test 05/05/17 23:50 Prothromb Time International Ratio 1.0 RATIO Prothrombin Time 9.8 SEC (9.8-11.6) Imaging Last 24 hours Impressions Tibia/Fibula X-Ray 05/06/17 0003 Signed Impressions: Service Date/Time: Saturday, May 06, 2017 00:29 - CONCLUSION: 1. Minimally displaced spiral fracture lateral malleolus. Lyndon Aparicio MD Pelvis X-Ray 05/06/172 Signed Impressions: Service Date/Time: Saturday, May 06, 2017 00:25 - CONCLUSION: 1. No acute findings. Previous bilateral hip replacement. Lyndon Aparicio MD Knee X-Ray 05/06/172 Signed Impressions: Service Date/Time: Saturday, May 06, 2017 00:28 - CONCLUSION: 1. Comminuted fractures of the proximal tibia and fibula with mild displacement and positive hemarthrosis. Lyndon Aparicio MD Chest X-Ray 05/06/172 Signed Impressions: Service Date/Time: Saturday, May 06, 2017 00:27 - CONCLUSION: 1. No active disease. Remote right proximal humeral fracture. Lyndon Aparicio MD Objective Remarks Patient is comfortable on O2 nasal cannula Right lower extremity: No pain at hip. She has a knee immobilizer and long-leg splint in place. She has intact sensation distally in her toes. She is good capillary refills. Assessment & Plan Assessment and Plan Right tibia plateau and distal fibula fracture Nothing by mouth Surgery this morning for ORIF of right tibia plateau and stress exam of right ankle. If ankles is unstable ORIF of the distal fibula or syndesmosis may be necessary Sign consents Ezequiel Oden Jr. May 06, 2017 06:34
--- NOTE | 2017-05-06 08:14 | MB ---
cc: ABELARDO MONTGOMERY DATE OF CONSULTATION: 05/06/2017 REASON FOR CONSULTATION 1. Right proximal tibia fracture. 2. Right distal fibula fracture. CONSULTING PHYSICIAN Dr. Zamora. HISTORY OF PRESENT ILLNESS Ms. Walsh is a 71-year-old female who has a history of hypertension, depression, anemia, COPD and reflux. She had a fall. She states that she was stepping over a baby gate to feed her cat. She lost her balance and fell. She had immediate right knee and right ankle pain. Most of her pain is in her right knee. She describes mechanical trip and fall. She denies dizziness, syncope or loss of consciousness. Pain is worse with weightbearing or movement. She is currently awake and alert on the orthopedic floor. Pain is improved with rest. PAST MEDICAL HISTORY ILLNESSES 1. Hypertension. 2. Depression. 3. Anemia. 4. COPD. 5. Reflux. SURGERIES 1. Bilateral hip replacement. 2. Cataract surgery. 3. Right wrist open reduction, internal fixation. 4. Tubal ligation. 5. . ALLERGIES TETRACYCLINE. SOCIAL HISTORY The patient denies tobacco or drug use. She drinks alcohol occasionally. FAMILY HISTORY Noncontributory. REVIEW OF SYSTEMS The patient denies headache, visual changes, neck pain, chest pain, shortness of breath, abdominal pain, nausea, vomiting or recent weight loss, fevers, chills, numbness or tingling of extremities or bowel or bladder incontinence. She complains of right knee and right ankle pain. PHYSICAL EXAMINATION GENERAL: The patient is a pleasant 71-year-old female. She is awake and alert. She appears well-developed, well-nourished. She is in no acute distress. VITAL SIGNS: Temperature 97.7, pulse 86, respirations 18, blood pressure 165/70, O2 sat 98% on 2 liters nasal cannula. HEAD: The patient is normocephalic. Pupils are equal. NECK: Soft, nontender. Trachea is midline. ABDOMEN: Soft, nontender, nondistended. EXTREMITIES: Examination of bilateral upper extremities reveals no pain with shoulder, elbow or wrist motion. She has intact sensation in all fingers. She has good cap refill in all fingers. Skin is intact. Radial pulses are palpable bilaterally. Telecommunications Operator strength is +5 bilaterally. Examination of left leg reveals no pain with hip, knee or ankle motion. Skin is intact. Dorsalis pedis pulses palpable. Sensation is intact. Examination of right leg reveals no tenderness around her hip. She is diffusely tender around her knee and proximal tibia. Calf and thigh compartments are soft. She has tenderness over the distal fibula. Skin is intact. Dorsalis pedis pulses palpable. Sensation is intact in her right foot. IMAGING STUDIES X-rays of right knee were reviewed. X-rays reveal a mildly displaced right proximal tibial plateau fracture. Articular surface is relatively well-aligned. X-rays of right ankle were reviewed. X-rays reveal an oblique fracture to the distal fibula. The mortise appears to be intact with no widening of the medial clear space. LABORATORY DATA White blood cell count of 11.7, hemoglobin is 11.7, hematocrit is 34.4. INR is 1.0. The BUN is 16, creatinine is 0.83. IMPRESSION 1. Hypertension. 2. COPD. 3. Reflux. 4. Right tibial plateau fracture. 5. Right distal fibula fracture. PLAN Treatment options were discussed with the patient. At this point I would recommend surgical open reduction, internal fixation of right tibial plateau. I will further evaluate right ankle fracture under fluoroscopy. Likely it will be treated non operatively. The risks of surgery include bleeding, infection, injuries to arteries, nerves and blood vessels, nonunion, malunion, painful hardware, knee arthritis, knee stiffness, loss of motion as well as medical complications including blood clot, stroke, heart attack and . All questions were answered. I will plan on surgery today. X-rays and lab results were reviewed. I will plan on surgery today. A mid-level provider in my office, nurse practitioner or PA, may see this patient on a follow-up basis and continue to implement the objective of this plan including: Starting or adjusting medications, injections of muscle, tendon, bursa or joints, cast application, orthotic or brace application, physical therapy, further radiographic studies including x-ray, MRI, CT, ultrasounds or bone scan, vascular studies, neurologic studies, or other specialist consultations, and proceeding with surgical management as appropriate. MD JEAN-PIERRE Thao/JORGE /7:31 AM 7:54 AM
[2017-05-06] MEDS ORDERED: ceFAZolin 2 GM PREMIX 50 ML ONE (08:42)
[2017-05-06] MEDS ORDERED: VANCOMYCIN HCL 1000 MG VIAL ONE (08:43)
[2017-05-06] MEDS ORDERED: DEXAMETHASONE SOD PHOS 4 MG/ML VIAL ONE (08:43)
[2017-05-06] MEDS ORDERED: GENTAMICIN SULFATE 80 MG/2 ML VIAL IRRIGATION ONE (08:47)
[2017-05-06] MEDS: SODIUM CHLORIDE 0.9% FLUSH 10 ML FLUSH IV FLUSH SCH ×2 (09:00→21:49)
[2017-05-06] MEDS ORDERED: ACLIDINIUM BROMIDE INH SCH (09:00)
[2017-05-06] MEDS: LACTATED RINGER'S 1000 ML INJ 1,000 ML IV SCH ×2 (09:23→21:53)
[2017-05-06] MEDS ORDERED: DO NOT ADM ANY ANTICOAGULANT DRUGS PRN (09:30)
[2017-05-06] MEDS ORDERED: diphenhydrAMINE HCL 25 MG CAP PO PRN (09:30)
[2017-05-06] MEDS ORDERED: NALOXONE HCL 0.4 MG/ML AMP IV PUSH PRN (09:30)
[2017-05-06] MEDS ORDERED: Post-op Orders (for Pharmacy) XX ONE (09:30)
--- NOTE | 2017-05-06 09:32 | PD.OP ---
cc: Brice Bailey MD Operative Report Date of Surgery: May 06, 2017 Preoperative Diagnosis: Right tibia bicondylar plateau fracture, right distal fibula fracture Postoperative Diagnosis: Procedure: Open reduction internal fixation right bicondylar tibial plateau fracture, stress exam of ankle under fluoroscopy, compartment pressure monitor checks right calf Surgeon: Brice Bailey Electrifier Operator(s): JENNIFER Block PA-C The surgical procedure was assisted by my physician behavioral health assistant. My P.A. presence was necessary throughout this case for the manipulation and positioning of the surgical extremity. My P.A. was assisting me throughout the duration of this procedure. The skill set of a physician behavioral health assistant was medically necessary to complete this procedure. During the surgical case the technical photographer was working at the back table and the physician behavioral health assistant was directly assisting me. Operation and Findings: Plan of activity: Nonweightbearing right leg Implants used: Biomet Tesha was seen and evaluated preoperatively. Patient sustained an injury resulting a bicondylar right tibial plateau fracture and right distal fibula fracture. Informed consent was obtained preoperatively after detailed discussion of the risks and benefits of surgery. Risk of surgery including bleeding, infection, nonunion, painful hardware, stiffness, loss of motion, arthritis, need for knee replacement, as well as medical complications including blood clots, stroke, heart attack, and were discussed. I also discussed the possibility of using allograft bone graft . Preoperatively the operative site was marked. Patient was brought to the operating room and placed on the operating room table. Intravenous sedation and general endotracheal anesthesia were administered. IV antibiotics were given and a time out procedure was preformed. The operative leg was prepped with alcohol followed by Hibiclens and draped in the usual sterile fashion. Procedure began with a 4-inch curvilinear incision over the anterolateral knee. Subcutaneous tissue was treated with Bovie. Iliotibial band was split in line with fibers. A sub-meniscal arthrotomy was created and the lateral articular surface was visualized. There was mild depression of the lateral articular surface. A window was made in the metaphyseal region and bone tamps used to elevate the articular surface. Articular surface reduced into excellent alignment. K-wires were used for provisional fixation. At this point cancellous bone graft was packed under the articular surface using a bone tamp. The cortical fragments were now reduced. Fluoroscopy revealed excellent alignment of fracture. A Biomet proximal tibial plate was selected. The plate was provisionally held with K-wires. 3.5 cortical screws were used compress plate to bone distally, and a periarticular clamp was used to compress the medial and lateral tibial plateau fracture fragments together. Multiple locking screws were now placed proximally. Additional screws were placed in the shaft. K-wires were removed. Final fluoroscopy showed excellent alignment of fracture with well-placed hardware. The incision was thoroughly irrigated. Arthrotomy and iliotibial band closed with #1 Vicryl,. Subcutaneous tissues closed with 3-0 Vicryl and skin was closed with chip. At this point patient's calf was examined. Patient had several fracture blisters develop around the calf. She had moderate swelling of the calf at this time. Decision was made to check compartment pressure measurements. Using the [employer] pressure monitor device, the calf compartments were checked. The lateral compartment measured 24, anterior compartment measured 31, and posterior compartment measured 14. Patient's blood pressure was 120/62 with a mean arterial pressure of 81. At this point, she does not have compartment syndrome. We will continue monitoring patient clinically for signs of increased swelling. Next attention was turned to the right ankle. Right ankle was visualized under fluoroscopy. Patient has a minimally displaced fibular fracture. The ankle was gently stressed. There was no widening of syndesmosis or medial clear space. Fibular fracture will be just treated nonoperatively. Sterile dressings were applied. The patient was transferred to recovery in stable condition. Brice Bailey MD May 06, 2017 09:32
[2017-05-06] MEDS ORDERED: ERGOCALCIFEROL (VIT D2) 50,000 UNIT CAP PO SCH (10:00)
--- NOTE | 2017-05-06 10:02 | RADRPT ---
EXAM DATE/TIME: 05/06/2017 08:45 [facility] COMPARISON: No previous studies available for comparison. INDICATIONS : ORIF right tibial plateau fracture. MEDICAL HISTORY : Unobtainable. SURGICAL HISTORY : Unobtainable. ENCOUNTER: Subsequent ACUITY: 1 day PAIN SCORE: Non-responsive. LOCATION: Right knee CONCLUSION: Fluoroscopic images during placement of plate and screws along the proximal tibia fixing fracture. Fi bular fracture also seen. Negro Oliveira MD on May 06, 2017 at 9:59 Board Certified Radiologist. This report was verified electronically.
--- NOTE | 2017-05-06 10:03 | RADRPT ---
EXAM DATE/TIME: 05/06/2017 08:45 [facility] COMPARISON: TIBIA/FIBULA RIGHT (AP/LAT), May 06, 2017, 0:29. INDICATIONS : Evaluate for fracture of right ankle under fluoro. MEDICAL HISTORY : Unobtainable. SURGICAL HISTORY : Unobtainable. ENCOUNTER: Initial ACUITY: 1 day PAIN SCORE: Non-responsive. LOCATION: Right ankle. CONCLUSION: Fluoroscopic image of the ankle demonstrates ankle mortise intact. Distal fibular fracture noted. Negro Oliveira MD on May 06, 2017 at 9:59 Board Certified Radiologist. This report was verified electronically.
[2017-05-06] MEDS: ATORVASTATIN 40 MG TAB PO SCH (11:04)
[2017-05-06] MEDS: PANTOPRAZOLE SOD 20 MG DELAYED RELEASE TAB PO SCH (11:04)
[2017-05-06] MEDS: DOCUSATE SODIUM 50 MG/SENNA 8.6 MG TAB PO SCH ×2 (11:04→21:47)
[2017-05-06] MEDS: buPROPion HCL 150 MG SUSTAINED RELEASE TAB PO SCH (11:04)
[2017-05-06] MEDS: CALCIUM/VITAMIN D 250 MG/125 U TAB PO SCH ×2 (13:00→18:00)
[2017-05-06] MEDS: KETOROLAC TROMETHAMINE 30 MG/ML (IVP) VIAL IVP SCH ×2 (15:33→21:47)
[2017-05-06] MEDS: ACETAMINOPHEN/HYDROcodone 325 MG/7.5 MG TAB PO PRN ×2 (15:33→21:49)
--- NOTE | 2017-05-06 17:44 | EKG ---
Date Performed: 05/06/2017 Time Performed: 00:43:49 PTAGE: 71 years EKG: Sinus rhythm MARKED LEFT AXIS DEVIATION LOW QRS VOLTAGE IN PRECORDIAL LEADS Left anterior fasicular block. ABNORM AL ECG PREVIOUS TRACING : 04/23/2017 10.00.53 DOCTOR: Jerrod Chinchilla Interpretating Date/Time 05/06/2017 17:43:41
[2017-05-06] MEDS: VANCOMYCIN INJ 1,000 MG in SODIUM CHLOR 0.9% 250 ML INJ 250 ML IV SCH (21:47)
[2017-05-06] MEDS: ceFAZolin 2 GM PREMIX 50 ML IV SCH (23:26)
[2017-05-07] VITALS (8 sets, daily range): BP systolic 98–142; BP diastolic 50–64; PULSE 76–92; RESP 17–18; TEMP 96.6–98.3; O2SAT 94–99
[2017-05-07 05:48] LABS: AUTOMATED NEUTROPHIL # 9.4 TH/MM3 (1.8-7.7); BASOPHIL % 0.2 % (0.0-2.0); HEMATOCRIT 28.1 % (35.0-46.0); HEMOGLOBIN 9.5 GM/DL (11.6-15.3); LYMPH % 7.5 % (9.0-44.0); LYMPHOCYTE # 0.8 TH/MM3 (1.0-4.8); MEAN CELL VOLUME 96.4 FL (80.0-100.0); MEAN CORPUSCULAR HEMOGLOBIN 32.6 PG (27.0-34.0); MEAN CORPUSCULAR HGB CONC 33.8 % (32.0-36.0); MEAN PLATELET VOLUME 7.6 FL (7.0-11.0); MONO % 7.5 % (0.0-8.0); MONOCYTE # 0.8 TH/MM3 (0-0.9); NEUT % 84.8 % (16.0-70.0); PLATELET COUNT 242 TH/MM3 (150-450); RED BLOOD COUNT 2.92 MIL/MM3 (4.00-5.30); RED CELL DISTRIBUTION WIDTH 14.5 % (11.6-17.2); WHITE BLOOD COUNT 11.1 TH/MM3 (4.0-11.0)
[2017-05-07] MEDS: ACETAMINOPHEN/HYDROcodone 325 MG/7.5 MG TAB PO PRN ×4 (06:11→21:21)
[2017-05-07] MEDS: KETOROLAC TROMETHAMINE 30 MG/ML (IVP) VIAL IVP SCH (06:11)
[2017-05-07 06:16] LABS: ALKALINE PHOSPHATASE 66 U/L (45-117); ALT (GPT) 19 U/L (10-53); AST (GOT) 21 U/L (15-37); BICARBONATE 25.8 MEQ/L (21.0-32.0); BLOOD UREA NITROGEN 15 MG/DL (7-18); CHLORIDE 111 MEQ/L (98-107); CREATININE 0.69 MG/DL (0.50-1.00); GLOMERULAR FILTRATION RATE 84 ML/MIN (>89); GLUCOSE,RANDOM 119 MG/DL (74-106); SODIUM (NA) 144 MEQ/L (136-145); TOTAL BILIRUBIN ADULT 0.6 MG/DL (0.2-1.0); TOTAL PROTEIN 6.3 GM/DL (6.4-8.2)
--- NOTE | 2017-05-07 06:32 | PD.ORT.PN ---
Subjective Subjective Remarks Resting in bed comfortably. They have been icing her leg and elevating. Objective Vitals Vital Signs Date Time Temp Pulse Resp B/P (MAP) Pulse Ox O2 Delivery O2 Flow Rate FiO2 05/07/17 03:39 96.9 83 18 119/51 (73) 98 05/07/17 00:12 97.0 87 17 114/53 (73) 97 05/06/17 21:10 95 Nasal Cannula 3.00 05/06/17 19:48 97.5 92 17 102/48 (66) 96 05/06/17 16:45 18 05/06/17 16:45 18 05/06/17 16:00 96.7 90 18 134/67 (89) 96 05/06/17 11:40 96.1 83 18 173/72 (105) 94 05/06/17 10:30 97.7 84 20 160/70 (100) 95 Nasal Cannula 4 05/06/17 10:15 84 20 167/70 (102) 95 Nasal Cannula 4 05/06/17 10:00 83 20 156/67 (96) 97 Nasal Cannula 4 05/06/17 09:45 87 20 163/66 (98) 98 Nasal Cannula 4 05/06/17 09:29 97.7 96 20 126/57 (80) 95 Nasal Cannula 4 I/O 05/06/17 05/06/17 05/06/17 05/07/17 05/07/17 05/07/17 07:00 15:00 23:00 07:00 15:00 23:00 Intake Total 0 ml 1480 ml 460 ml Output Total 250 ml Balance 0 ml 1230 ml 460 ml Intake Oral 0 ml 480 ml 360 ml IV Total 100 ml Other 1000 ml Output Urine Total 150 ml Estimated Blood Loss 100 ml # Voids 0 2 # Bowel Movements 0 0 0 Result Diagram: 05/07/17 0510 05/07/17 0510 Imaging Last 24 hours Impressions Tibia/Fibula X-Ray 05/06/17 0003 Signed Impressions: Service Date/Time: Saturday, May 06, 2017 00:29 - CONCLUSION: 1. Minimally displaced spiral fracture lateral malleolus. Lyndon Aparicio MD Pelvis X-Ray 05/06/17 0003 Signed Impressions: Service Date/Time: Saturday, May 06, 2017 00:25 - CONCLUSION: 1. No acute findings. Previous bilateral hip replacement. Lyndon Aparicio MD Knee X-Ray 05/06/17 0003 Signed Impressions: Service Date/Time: Saturday, May 06, 2017 00:28 - CONCLUSION: 1. Comminuted fractures of the proximal tibia and fibula with mild displacement and positive hemarthrosis. Lyndon Aparicio MD Chest X-Ray 05/06/17 0003 Signed Impressions: Service Date/Time: Saturday, May 06, 2017 00:27 - CONCLUSION: 1. No active disease. Remote right proximal humeral fracture. Lyndon Aparicio MD Objective Remarks Patient is comfortable on O2 nasal cannula Right lower extremity: No pain at hip. She has 2 large ice bags over her lower knee and tibia. She has clean dressings. Swelling is continuing to improve. Distally she has intact sensation with active dorsiflexion plantar flexion foot and movement of toes. Assessment & Plan Assessment and Plan Right tibia plateau ORIF POD 1 Right distal fibula fracture treating nonoperatively Nonweightbearing right lower extremity Continue to ice and elevate lower leg Bedrest today As swelling improves with anticipate putting short leg splint on tomorrow morning and back and knee immobilizer. At that point she may begin working with physical therapy and getting up on a walker and transferring. Daily dressing changes Lovenox Incentive spirometry Plan for discharge to rehabilitation tomorrow or Follow-up Dr. Bailey or DIPESH in 2 weeks Ezequiel Oden Jr. May 07, 2017 06:32
[2017-05-07] MEDS ORDERED: XARE10TA PO (06:34)
[2017-05-07] MEDS ORDERED: CALCTAB19 PO (06:34)
[2017-05-07] MEDS ORDERED: HYDR-3580 PO (06:34)
[2017-05-07] MEDS ORDERED: VITA500012 PO (06:34)
[2017-05-07] MEDS ORDERED: WALKER/ADULT/FO1 MIS (06:35)
[2017-05-07] MEDS: SODIUM CHLOR 0.9% 1000 ML INJ 1,000 ML IV SCH ×2 (08:28→18:28)
[2017-05-07] MEDS: ceFAZolin 2 GM PREMIX 50 ML IV SCH ×2 (08:39→17:36)
[2017-05-07] MEDS: VANCOMYCIN INJ 1,000 MG in SODIUM CHLOR 0.9% 250 ML INJ 250 ML IV SCH (08:39)
[2017-05-07] MEDS: ENOXAPARIN SODIUM 30 MG/0.3 ML SYRINGE SQ SCH (08:40)
[2017-05-07] MEDS: DOCUSATE SODIUM 50 MG/SENNA 8.6 MG TAB PO SCH ×2 (08:41→21:20)
[2017-05-07] MEDS: CALCIUM/VITAMIN D 250 MG/125 U TAB PO SCH ×3 (08:41→17:34)
[2017-05-07] MEDS: CHOLECALCIFEROL (VIT D3) 1000 UNIT TAB PO SCH (08:41)
[2017-05-07] MEDS: buPROPion HCL 150 MG SUSTAINED RELEASE TAB PO SCH (08:41)
[2017-05-07] MEDS: PANTOPRAZOLE SOD 20 MG DELAYED RELEASE TAB PO SCH (08:41)
[2017-05-07] MEDS: ATORVASTATIN 40 MG TAB PO SCH (08:42)
[2017-05-07] MEDS: SODIUM CHLORIDE 0.9% FLUSH 10 ML FLUSH IV FLUSH SCH ×2 (08:42→21:21)
--- NOTE | 2017-05-07 08:42 | HHI.PR ---
Subjective Remarks no pain complains patient voidied already spntaenously states she was climbing over baby gate and fell Objective Vitals Vital Signs Date Time Temp Pulse Resp B/P (MAP) Pulse Ox O2 Delivery O2 Flow Rate FiO2 05/07/17 08:35 98 Nasal Cannula 2.50 05/07/17 08:00 96.6 76 18 111/53 (72) 99 05/07/17 03:39 96.9 83 18 119/51 (73) 98 05/07/17 00:12 97.0 87 17 114/53 (73) 97 05/06/17 21:10 95 Nasal Cannula 3.00 05/06/17 19:48 97.5 92 17 102/48 (66) 96 05/06/17 16:45 18 05/06/17 16:45 18 05/06/17 16:00 96.7 90 18 134/67 (89) 96 05/06/17 11:40 96.1 83 18 173/72 (105) 94 05/06/17 10:30 97.7 84 20 160/70 (100) 95 Nasal Cannula 4 05/06/17 10:15 84 20 167/70 (102) 95 Nasal Cannula 4 05/06/17 10:00 83 20 156/67 (96) 97 Nasal Cannula 4 05/06/17 09:45 87 20 163/66 (98) 98 Nasal Cannula 4 05/06/17 09:29 97.7 96 20 126/57 (80) 95 Nasal Cannula 4 I/O 05/06/17 05/06/17 05/06/17 05/07/17 05/07/17 05/07/17 07:00 15:00 23:00 07:00 15:00 23:00 Intake Total 0 ml 1480 ml 460 ml 360 ml Output Total 250 ml Balance 0 ml 1230 ml 460 ml 360 ml Intake Oral 0 ml 480 ml 360 ml 360 ml IV Total 100 ml Other 1000 ml Output Urine Total 150 ml Estimated Blood Loss 100 ml # Voids 0 2 2 # Bowel Movements 0 0 0 0 Result Diagram: 05/07/17 0510 05/07/17 0510 Imaging Last Impressions Tibia/Fibula X-Ray 05/06/17 0003 Signed Impressions: Service Date/Time: Saturday, May 06, 2017 00:29 - CONCLUSION: 1. Minimally displaced spiral fracture lateral malleolus. Lyndon Aparicio MD Pelvis X-Ray 05/06/17 0003 Signed Impressions: Service Date/Time: Saturday, May 06, 2017 00:25 - CONCLUSION: 1. No acute findings. Previous bilateral hip replacement. Lyndon Aparicio MD Knee X-Ray 05/06/17 0003 Signed Impressions: Service Date/Time: Saturday, May 06, 2017 00:28 - CONCLUSION: 1. Comminuted fractures of the proximal tibia and fibula with mild displacement and positive hemarthrosis. Lyndon Aparicio MD Chest X-Ray 05/06/17 0003 Signed Impressions: Service Date/Time: Saturday, May 06, 2017 00:27 - CONCLUSION: 1. No active disease. Remote right proximal humeral fracture. Lyndon Aparicio MD Ankle X-Ray 05/06/17 0000 Signed Impressions: Service Date/Time: Saturday, May 06, 2017 08:45 - CONCLUSION: Fluoroscopic image of the ankle demonstrates ankle mortise intact. Distal fibular fracture noted. Negro Oliveira MD Objective Remarks awake and alert, no distress lungs- clear regular rhythm abdomen soft, nontender extremities- right LE- immobilizer in place, ++ DP, PT, mild foot swelling Procedures 05/06 Open reduction internal fixation right bicondylar tibial plateau fracture, stress exam of ankle under fluoroscopy, compartment pressure monitor checks right calf A/P Problem List: (1) Fall ICD Code: W19.XXXA - Unspecified fall, initial encounter (2) Right malleolar fracture ICD Code: S82.891A - Other fracture of right lower leg, initial encounter for closed fracture (3) Right tibial fracture ICD Code: S82.201A - Unspecified fracture of shaft of right tibia, initial encounter for closed fracture (4) COPD (chronic obstructive pulmonary disease) ICD Code: J44.9 - COPD (chronic obstructive pulmonary disease) Status: Chronic Assessment and Plan 71 years old baseline very independent s/p mechanical trip and fall at home, no LOC or head trauma reported. No other injuries noted. S/P ORIF Right Proximal Tib-Fib Fx/Right Malleolus Fx 05/06: Secondary to above. Ortho ff. PTT daily prn pain meds COPD: - in remission. not 02 dependent History of AHMET Resume home MDI/Neb. CXR w/ no acute findings, images reviewed by me. 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 patient states prefers to go to SNF- CM assisting with DC needs PCP- Dr. Lawson Problem Qualifiers (1) Right tibial fracture: Qualified Codes: S82.101D - Unspecified fracture of upper end of right tibia, subsequent encounter for closed fracture with routine healing Guille Ring MD May 07, 2017 08:42
[2017-05-07] MEDS: LACTATED RINGER'S 1000 ML INJ 1,000 ML IV SCH ×2 (10:23→22:53)
[2017-05-08 00:15] VITALS: BP 123/60; PULSE 86; RESP 18; TEMP 97.2; O2SAT 98
[2017-05-08] MEDS: ceFAZolin 2 GM PREMIX 50 ML IV SCH ×2 (00:24→08:23)
[2017-05-08] MEDS: ACETAMINOPHEN/HYDROcodone 325 MG/7.5 MG TAB PO PRN ×4 (00:31→16:35)
[2017-05-08 04:20] VITALS: BP 111/53; PULSE 83; RESP 18; TEMP 97; O2SAT 98
[2017-05-08] MEDS: SODIUM CHLOR 0.9% 1000 ML INJ 1,000 ML IV SCH ×3 (04:28→22:06)
--- NOTE | 2017-05-08 06:30 | PD.ORT.PN ---
Subjective Subjective Remarks POD 2 s/p ORIF right tibial plateau s/p right fibula fx doing well. pain controlled. no changes Objective Vitals Vital Signs Date Time Temp Pulse Resp B/P (MAP) Pulse Ox O2 Delivery O2 Flow Rate FiO2 05/08/17 04:20 97.0 83 18 111/53 (72) 98 05/08/17 00:15 97.2 86 18 123/60 (81) 98 05/07/17 20:47 98 Nasal Cannula 2.00 05/07/17 20:25 97.3 92 18 142/64 (90) 98 05/07/17 16:00 98.3 84 18 116/53 (74) 99 05/07/17 11:37 97.8 80 18 98/50 (66) 94 05/07/17 08:35 98 Nasal Cannula 2.50 05/07/17 08:00 96.6 76 18 111/53 (72) 99 I/O 05/07/17 05/07/17 05/07/17 05/08/17 05/08/17 05/08/17 07:00 15:00 23:00 07:00 15:00 23:00 Intake Total 360 ml 720 ml 240 ml Balance 360 ml 720 ml 240 ml Intake Oral 360 ml 720 ml 240 ml # Voids 2 3 3 # Bowel Movements 0 0 0 Result Diagram: 05/07/17 0510 05/07/17 0510 Imaging Last 24 hours Impressions Tibia/Fibula X-Ray 05/06/17 0003 Signed Impressions: Service Date/Time: Saturday, May 06, 2017 00:29 - CONCLUSION: 1. Minimally displaced spiral fracture lateral malleolus. Lyndon Aparicio MD Pelvis X-Ray 05/06/17 0003 Signed Impressions: Service Date/Time: Saturday, May 06, 2017 00:25 - CONCLUSION: 1. No acute findings. Previous bilateral hip replacement. Lyndon Aparicio MD Knee X-Ray 05/06/172 Signed Impressions: Service Date/Time: Saturday, May 06, 2017 00:28 - CONCLUSION: 1. Comminuted fractures of the proximal tibia and fibula with mild displacement and positive hemarthrosis. Lyndon Aparicio MD Chest X-Ray 05/06/17 0003 Signed Impressions: Service Date/Time: Saturday, May 06, 2017 00:27 - CONCLUSION: 1. No active disease. Remote right proximal humeral fracture. Lyndon Aparicio MD Objective Remarks RLE: dressings intact. mild bloody drainage. compartments soft. swelling improving. good dorsiflexion of foot and toes. neg linda. full sensation distally. swelling over fibula with point tenderness. Assessment & Plan Assessment and Plan 1) Right tibia plateau ORIF POD 2 2) Right distal fibula fracture treating nonoperatively Nonweightbearing right lower extremity PT to get patient out of bed today will get ankle splint placed today Continue to ice and elevate lower leg Daily dressing changes Lovenox Incentive spirometry Plan for discharge to rehabilitation Follow-up Dr. Bailey or [place] in 2 weeks Loco Fall/First Ava LANDON May 08, 2017 06:30
[2017-05-08 08:00] VITALS: BP 150/65; PULSE 86; RESP 17; TEMP 97; O2SAT 97
[2017-05-08] MEDS: PANTOPRAZOLE SOD 20 MG DELAYED RELEASE TAB PO SCH (08:23)
[2017-05-08] MEDS: ATORVASTATIN 40 MG TAB PO SCH (08:23)
[2017-05-08] MEDS: CALCIUM/VITAMIN D 250 MG/125 U TAB PO SCH ×3 (08:23→16:34)
[2017-05-08] MEDS: buPROPion HCL 150 MG SUSTAINED RELEASE TAB PO SCH (08:24)
[2017-05-08] MEDS: ENOXAPARIN SODIUM 30 MG/0.3 ML SYRINGE SQ SCH (08:24)
[2017-05-08] MEDS: DOCUSATE SODIUM 50 MG/SENNA 8.6 MG TAB PO SCH ×2 (08:24→20:19)
[2017-05-08] MEDS: LACTATED RINGER'S 1000 ML INJ 1,000 ML IV SCH ×2 (11:23→20:23)
[2017-05-08 12:00] VITALS: BP 131/60; PULSE 87; RESP 17; TEMP 97; O2SAT 95
[2017-05-08 16:00] VITALS: BP 130/60; PULSE 91; RESP 17; TEMP 99; O2SAT 93
--- NOTE | 2017-05-08 16:43 | HHI.PR ---
Subjective Remarks Resting comfortably in bed No event overnight Pain is tolerable in the leg Objective Vitals Vital Signs Date Time Temp Pulse Resp B/P (MAP) Pulse Ox O2 Delivery O2 Flow Rate FiO2 05/08/17 12:00 97.0 87 17 131/60 (83) 95 05/08/17 08:00 97.0 86 17 150/65 (93) 97 05/08/17 04:20 97.0 83 18 111/53 (72) 98 05/08/17 00:15 97.2 86 18 123/60 (81) 98 05/07/17 20:47 98 Nasal Cannula 2.00 05/07/17 20:25 97.3 92 18 142/64 (90) 98 I/O 05/07/17 05/07/17 05/07/17 05/08/17 05/08/17 05/08/17 07:00 15:00 23:00 07:00 15:00 23:00 Intake Total 360 ml 720 ml 240 ml 240 ml Balance 360 ml 720 ml 240 ml 240 ml Intake Oral 360 ml 720 ml 240 ml 240 ml # Voids 2 3 3 2 # Bowel Movements 0 0 0 0 Result Diagram: 05/07/17 0510 05/07/17 0510 Objective Remarks GENERAL: This is a well-nourished, well-developed patient, in no apparent distress. CARDIOVASCULAR: Regular rate and rhythm without murmurs, gallops, or rubs. RESPIRATORY: Clear to auscultation. Breath sounds equal bilaterally. No wheezes , rales, or rhonchi. GASTROINTESTINAL: Abdomen soft, non-tender, nondistended. Normal active bowel sounds MUSCULOSKELETAL: Extremities without clubbing, cyanosis, or edema. Right lower extremity immobilizer NEURO: Alert & Oriented x4 to person, place, time, situation. Moves all ext x4 Procedures 05/06 Open reduction internal fixation right bicondylar tibial plateau fracture, stress exam of ankle under fluoroscopy, compartment pressure monitor checks right calf A/P Problem List: (1) Fall ICD Code: W19.XXXA - Unspecified fall, initial encounter (2) Right malleolar fracture ICD Code: S82.891A - Other fracture of right lower leg, initial encounter for closed fracture (3) Right tibial fracture ICD Code: S82.201A - Unspecified fracture of shaft of right tibia, initial encounter for closed fracture (4) COPD (chronic obstructive pulmonary disease) ICD Code: J44.9 - COPD (chronic obstructive pulmonary disease) Status: Chronic Assessment and Plan 71 years old baseline very independent s/p mechanical trip and fall at home, no LOC or head trauma reported. No other injuries noted. S/P ORIF Right Proximal Tib-Fib Fx/Right Malleolus Fx 05/06: Secondary to above. Ortho ff. PTT daily prn pain meds COPD: - in remission. not 02 dependent History of AHMET Resume home MDI/Neb. CXR w/ no acute findings, images reviewed by me. BiPAP at hs- family will bring in machine ff up with Dr. Frausto as OP- her vp genetic DVT Prophylaxis: - Like.fm Social work for DC planning as needed. patient states prefers to go to SNF- CM assisting with DC needs Discharge Planning Mostly per ortho Problem Qualifiers (1) Right tibial fracture: Qualified Codes: S82.101D - Unspecified fracture of upper end of right tibia, subsequent encounter for closed fracture with routine healing Samy Marie MD May 08, 2017 16:43
[2017-05-08] MEDS: MORPHINE SULFATE 2 MG/ML INJ IV PUSH PRN (18:52)
[2017-05-08 20:15] VITALS: BP 146/66; PULSE 89; RESP 18; TEMP 97.7; O2SAT 95
[2017-05-08] MEDS: CHOLECALCIFEROL (VIT D3) 1000 UNIT TAB PO SCH (20:17)
[2017-05-08] MEDS: SODIUM CHLORIDE 0.9% FLUSH 10 ML FLUSH IV FLUSH SCH (20:19)
[2017-05-09 00:28] VITALS: BP 154/54; PULSE 85; RESP 18; TEMP 96.7; O2SAT 92
[2017-05-09] MEDS: ACETAMINOPHEN/HYDROcodone 325 MG/7.5 MG TAB PO PRN ×2 (06:19→13:18)
--- NOTE | 2017-05-09 06:41 | PD.ORT.PN ---
Subjective Subjective Remarks POD 3 s/p ORIF right tibial plateau s/p right fibula fx doing well. pain controlled. no changes Objective Vitals Vital Signs Date Time Temp Pulse Resp B/P (MAP) Pulse Ox O2 Delivery O2 Flow Rate FiO2 05/09/17 00:28 96.7 85 18 154/54 (87) 92 05/08/17 20:15 97.7 89 18 146/66 (92) 95 05/08/17 16:00 99.0 91 17 130/60 (83) 93 05/08/17 12:00 97.0 87 17 131/60 (83) 95 05/08/17 08:00 97.0 86 17 150/65 (93) 97 I/O 05/08/17 05/08/17 05/08/17 05/09/17 05/09/17 05/09/17 07:00 15:00 23:00 07:00 15:00 23:00 Intake Total 240 ml 380 ml 480 ml 360 ml Balance 240 ml 380 ml 480 ml 360 ml Intake Oral 240 ml 380 ml 480 ml 360 ml # Voids 2 2 2 2 # Bowel Movements 0 0 0 0 Result Diagram: 05/07/17 0510 05/07/17 0510 Imaging Last 24 hours Impressions Tibia/Fibula X-Ray 05/06/172 Signed Impressions: Service Date/Time: Saturday, May 06, 2017 00:29 - CONCLUSION: 1. Minimally displaced spiral fracture lateral malleolus. Lyndon Aparicio MD Pelvis X-Ray 05/06/172 Signed Impressions: Service Date/Time: Saturday, May 06, 2017 00:25 - CONCLUSION: 1. No acute findings. Previous bilateral hip replacement. Lyndon Aparicio MD Knee X-Ray 05/06/172 Signed Impressions: Service Date/Time: Saturday, May 06, 2017 00:28 - CONCLUSION: 1. Comminuted fractures of the proximal tibia and fibula with mild displacement and positive hemarthrosis. Lyndon Aparicio MD Chest X-Ray 05/06/172 Signed Impressions: Service Date/Time: Saturday, May 06, 2017 00:27 - CONCLUSION: 1. No active disease. Remote right proximal humeral fracture. Lyndon Aparicio MD Objective Remarks RLE: dressings intact. mild bloody drainage. compartments soft. swelling improving. neg linda. full sensation distally. +short leg splint Assessment & Plan Assessment and Plan 1) Right tibia plateau ORIF POD 3 2) Right distal fibula fracture treating nonoperatively Nonweightbearing right lower extremity PT to get patient out of bed today will get ankle splint placed today Continue to ice and elevate lower leg Daily dressing changes Lovenox Incentive spirometry Plan for discharge to rehabilitation Follow-up Dr. Bailey or [place] in 2 weeks Loco Fall/Unloading Checker PA May 09, 2017 06:41
[2017-05-09 07:50] VITALS: BP 152/58; PULSE 90; RESP 17; TEMP 99.2; O2SAT 93
[2017-05-09] MEDS: CALCIUM/VITAMIN D 250 MG/125 U TAB PO SCH ×2 (08:19→13:18)
[2017-05-09] MEDS: ATORVASTATIN 40 MG TAB PO SCH (08:19)
[2017-05-09] MEDS: DOCUSATE SODIUM 50 MG/SENNA 8.6 MG TAB PO SCH (08:19)
[2017-05-09] MEDS: CHOLECALCIFEROL (VIT D3) 1000 UNIT TAB PO SCH (08:19)
[2017-05-09] MEDS: ENOXAPARIN SODIUM 30 MG/0.3 ML SYRINGE SQ SCH (08:19)
[2017-05-09] MEDS: PANTOPRAZOLE SOD 20 MG DELAYED RELEASE TAB PO SCH (08:20)
[2017-05-09] MEDS: buPROPion HCL 150 MG SUSTAINED RELEASE TAB PO SCH ×2 (09:00→12:31)
[2017-05-09 11:52] VITALS: BP 160/66; PULSE 87; RESP 17; TEMP 98.2; O2SAT 96
== END 2017-05-09 15:11 | DRG 493 ==
LOC: NEPC 23:44 → NEDA 05-06 02:22 → N06B 05-06 03:30
PROVIDERS: ADMIT Hospitalist; ATTEND Hospitalist
PROC: 0QSG04Z Reposition Right Tibia with Internal Fixation Device, Open Approach (ICD-10-PCS; principal; 2017-05-06 07:29)
DX: S82.141A Displaced bicondylar fracture of right tibia, initial encounter for closed fracture (principal); S82.63XA Displaced fracture of lateral malleolus of unspecified fibula, initial encounter for closed fracture; W01.0XXA Fall on same level from slipping, tripping and stumbling without subsequent striking against object, initial encounter; Y93.89 Activity, other specified; J96.10 Chronic respiratory failure, unspecified whether with hypoxia or hypercapnia; J44.9 Chronic obstructive pulmonary disease, unspecified; D64.9 Anemia, unspecified; F32.9 Major depressive disorder, single episode, unspecified; G47.30 Sleep apnea, unspecified; I10 Essential (primary) hypertension; K21.9 Gastro-esophageal reflux disease without esophagitis; E78.00 Pure hypercholesterolemia, unspecified; Z85.828 Personal history of other malignant neoplasm of skin; Z96.643 Presence of artificial hip joint, bilateral; Z87.891 Personal history of nicotine dependence
CPT/HCPCS: 71045; 72170; 73560; 73564; 73590; 76000; 76937; 80053; 82550; 82552; 82652; 84484; 85025; 85610; 85730; 93005; 94150; J0131; J0690; J1100; J1650; J1885; J2270; J3010; J3370; J7030; J7050; L1830